=== PATIENT | male | born 1955 | race Caucasian/White ===

== ENCOUNTER 2020-06-28 08:18 | Day surgery (SDC) | payer OTHER ==
[2020-06-28] MEDS ORDERED: fentaNYL 100 MCG/2 ML SDV ONE (08:20)
[2020-06-28] MEDS ORDERED: Midazolam 1 MG/ML 2 ML SDV ONE (08:21)
[2020-06-28] MEDS ORDERED: Propofol 200 MG/20 ML SDV ONE (08:21)
[2020-06-28] MEDS ORDERED: Dextrose 5%-Lactated Ringers 1,000 ML IV SCH (09:00)
--- NOTE | 2020-07-02 18:25 | OR ---
DATE OF PROCEDURE: 06/28/2020 SURGEON: Ronald John MD PREOPERATIVE DIAGNOSIS: History of colon polyps. POSTOPERATIVE DIAGNOSIS: Single recurrent rectal polyp. OPERATIVE PROCEDURE: Flexible colonoscopy with polypectomy by snare technique. ANESTHESIA: IV sedation. INDICATIONS FOR PROCEDURE: This is a 64-year-old with a history of previous colon polyps presenting for a screening colonoscopy. Plan is to proceed with a colonoscopy with biopsies and polypectomy as indicated. Potential risks including bleeding and perforation were discussed, and the patient wishes to proceed. DETAILS OF PROCEDURE: The patient was taken to the operating room, placed in a left lower lateral decubitus position. IV sedation was administered, after which the initial digital rectal exam was performed, which was unremarkable. Colonoscope was passed into the rectum with retroflexion revealing uncomplicated hemorrhoidal columns. Scope was then eventually passed to the level of the cecum. The prep was quite good; only a small liquid stool present. There were no diverticula and no areas of colitis. A single polyp was noted in the mid rectum measuring somewhat less than a centimeter. This was encircled with a snare and cauterized and evacuated and sent for histologic evaluation. Hemostasis of these segments were confirmed and the procedure was then concluded. Assuming that the polypectomy today is benign, which is highly likely, the next colonoscopy should be in 3 years. Ronald John MD /[id number]
== END 2020-06-28 12:47 | disposition home or self-care (01) ==
LOC: JP.SDS 08:18
PROVIDERS: ATTEND Surgery
DX: Z12.11 Encounter for screening for malignant neoplasm of colon (principal); D12.8 Benign neoplasm of rectum; K64.9 Unspecified hemorrhoids; E78.00 Pure hypercholesterolemia, unspecified; Z86.010 Personal history of colon polyps; Z80.0 Family history of malignant neoplasm of digestive organs; Z86.73 Personal history of transient ischemic attack (TIA), and cerebral infarction without residual deficits
CPT/HCPCS: 45385; 88305; J2250; J2704; J3010; J7121